=== PATIENT | male | born 1995 | race American Indian/Alaskan Native ===

== ENCOUNTER 2017-04-24 18:11 | Emergency (ER) | payer SELFPAY ==
[2017-04-24 18:15] VITALS: BMI 57.7
[2017-04-24 18:18] VITALS: TEMP 98.2
--- NOTE | 2017-04-24 19:25 | C.PDOC ---
History Of Present Illness 22 y/o male presents to ED with complaint of abdominal discomfort associated with nausea since last night. Patient states he had chicken salad sandwich from [employer] last night, and notes his stomach did not feel well afterward. Patient denies vomiting or diarrhea. He states that he had bowel movement this morning that was initially formed but then was loose. He notes symptoms have been persistent throughout the day today and notes no relief with Pepto Bismol. Otherwise, denies fever chills, urinary symptoms, back pain, or other complaints. Time Seen by Provider: 04/24/17 18:54 Chief Complaint (Nursing): Abdominal Pain History Per: Patient History/Exam Limitations: no limitations Onset/Duration Of Symptoms: Days Current Symptoms Are (Timing): Still Present Location Of Pain/Discomfort: Diffuse Quality Of Discomfort: "Pain" Associated Symptoms: denies: Fever, Chills, Vomiting, Diarrhea, Urinary Symptoms Last Bowel Movement: Today Recent travel outside of the [place]: No Past Medical History Reviewed: Historical Data, Nursing Documentation, Vital Signs Vital Signs: Last Vital Signs Temp 98.2 F 04/24/17 18:15 Pulse 88 04/24/17 18:15 Resp 18 04/24/17 18:15 BP 116/80 04/24/17 18:15 Pulse Ox 98 04/24/17 19:25 - Medical History PMH: Asthma, Depression, Fractures (Left Femur) - [facility] Procedures IRRIGATION OF EAR (05/21/13) OTHER GROUP THERAPY (06/21/13) Family History: States: Unknown Family Hx - Social History Hx Tobacco Use: No Hx Alcohol Use: No Hx Substance Use: No - Immunization History Hx Tetanus Toxoid Vaccination: No Hx Influenza Vaccination: No Hx Pneumococcal Vaccination: No Review Of Systems Except As Marked, All Systems Reviewed And Found Negative. Constitutional: Negative for: Fever, Chills Cardiovascular: Negative for: Chest Pain Respiratory: Negative for: Cough, Shortness of Breath Gastrointestinal: Positive for: Nausea, Abdominal Pain. Negative for: Vomiting , Diarrhea, Constipation Genitourinary: Negative for: Dysuria Skin: Negative for: Rash Physical Exam - Physical Exam Appears: Non-toxic, No Acute Distress Skin: Normal Color, Warm, Dry Head: Atraumatic, Normacephalic Oral Mucosa: Moist Chest: Symmetrical Cardiovascular: Rhythm Regular Respiratory: Normal Breath Sounds, No Rales, No Rhonchi, No Wheezing Gastrointestinal/Abdominal: Soft, No Tenderness, No Guarding, No Rebound Back: Normal Inspection, No CVA Tenderness Extremity: Normal ROM Neurological/Psych: Oriented x3, Normal Speech, Normal Cognition ED Course And Treatment - Laboratory Results Result Diagrams: 04/24/17 19:38 04/24/17 19:38 Lab Interpretation: No Acute Changes O2 Sat by Pulse Oximetry: 98 Pulse Ox Interpretation: Normal Progress Note: Treated with Bentyl, IVFs. Labs including urinalysis ordered and reviewed. Reevaluation Time: 20:16 Reassessment Condition: Improved (after Bentyl and IV fluids) Disposition Counseled Patient/Family Regarding: Studies Performed, Diagnosis, Need For Followup, Rx Given - Disposition Referrals: [facility] [Outside] Disposition: HOME/ ROUTINE Disposition Time: 20:19 Condition: IMPROVED Additional Instructions: Take clear fluids and advance to a bland diet as tolerated. Prescriptions: Dicyclomine [Bentyl] 20 mg PO QID PRN #6 tab PRN Reason: Pain, Moderate (4-7) Ondansetron ODT [Zofran ODT] 4 mg PO QID PRN #6 odt PRN Reason: Nausea/Vomiting Instructions: Acute Nausea and Vomiting (ED), Abdominal Pain (ED) - Clinical Impression Clinical Impression: Abdominal discomfort, Nausea - Scribe Statement The provider has reviewed the documentation as recorded by the Kavin Hernandez Provider Attestation: All medical record entries made by the Kavin were at my direction and personally dictated by me. I have reviewed the chart and agree that the record accurately reflects my personal performance of the history, physical exam, medical decision making, and the department course for this patient. I have also personally directed, reviewed, and agree with the discharge instructions and disposition.
[2017-04-24] MEDS ORDERED: Sodium Chloride 0.9% 1,000 ML ONE (19:28)
[2017-04-24] MEDS: Sodium Chloride 0.9% 1,000 ML IV ONE (19:38)
[2017-04-24 19:40] LABS: BASO % 0.4 % (0.0-2.0); EOS # 0.1 K/uL (0.0-0.7); EOS % 3.4 % (0.0-4.0); HEMATOCRIT 43.6 % (35.0-51.0); LYMPH # 0.5 K/uL (1.0-4.3); LYMPH % 16.6 % (20.0-40.0); MEAN CELL VOLUME 79.5 fL (80.0-94.0); MEAN CORPUSCULAR HEMOGLOBIN 25.5 pg (27.0-31.0); MEAN PLATELET VOLUME 10.1 fL (7.2-11.7); MONO # 0.4 K/uL (0.0-0.8); MONO % 12.3 % (0.0-10.0); NRBC % 0.1 % (0.0-2.0); RED CELL DISTRIBUTION WIDTH 13.9 % (11.5-14.5); WHITE BLOOD COUNT 3.3 K/uL (4.8-10.8)
[2017-04-24 19:49] LABS: CHLORIDE 99 mmol/L (98-107); POTASSIUM 4.3 mmol/L (3.6-5.2); SODIUM 138 mmol/L (132-148)
[2017-04-24 19:51] LABS: ALB/GLOB RATIO 1.5 (1.0-2.1); AST/SGOT 37 U/L (17-59); BILIRUBIN,TOTAL 0.9 mg/dL (0.2-1.3); CARBON DIOXIDE 27 mmol/L (22-30); GFR AFRICAN-AMERICAN > 60; TOTAL PROTEIN 7.6 g/dL (6.3-8.3)
[2017-04-24 19:52] LABS: ALKALINE PHOSPHATASE 57 U/L (38-126); ALT/SGPT 36 U/L (21-72); BLOOD UREA NITROGEN 11 mg/dL (9-20); CALCIUM 8.8 mg/dl (8.6-10.4); GLUCOSE,RANDOM 85 mg/dL (75-110)
[2017-04-24 20:38] VITALS: BP 131/77; PULSE 80; RESP 20; O2SAT 100
== END 2017-04-24 20:40 | disposition home or self-care (01) ==
LOC: C.ER 18:11
DX: R10.9 Unspecified abdominal pain (principal); R11.0 Nausea
CPT/HCPCS: 80053; 83690; 85025; 96360; 96372; 99284; J0500; J7040

== ENCOUNTER 2019-03-14 17:21 | Emergency (ER) | payer MEDICAID, OTHER ==
[2019-03-14 17:21] VITALS: BMI 53.0
[2019-03-14 17:41] VITALS: RESP 18; O2SAT 100
--- NOTE | 2019-03-14 18:48 | C.PDOC ---
History Of Present Illness 24 y/o male pt presents to the ER c/o lower back pain for over 1 week. 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 Pt takes aleve with no relief. Pt denies saddle anesthesia, weakness, numbness and tingling, bladder or bowel dysfunction. Time Seen by Provider: 03/14/19 18:15 Chief Complaint (Nursing): Back Pain History Per: Patient History/Exam Limitations: no limitations Onset/Duration Of Symptoms: Days (over a week) Current Symptoms Are (Timing): Still Present Past Medical History Reviewed: Historical Data, Nursing Documentation, Vital Signs Vital Signs: Last Vital Signs Temp 98.1 F 03/14/19 17:38 Pulse 92 H 03/14/19 17:38 Resp 18 03/14/19 17:38 BP 154/89 H 03/14/19 17:38 Pulse Ox 100 03/14/19 17:38 - Medical History PMH: Anxiety, Asthma, Bipolar Disorder, Depression, Fractures (Left Femur), Sleep Apnea - [facility] Procedures GROUP PSYCHOTHERAPY (07/04/18) INDIVIDUAL PSYCHOTHERAPY, BEHAVIORAL (07/04/18) IRRIGATION OF EAR (05/21/13) OTHER GROUP THERAPY (06/21/13) Family History: States: No Known Family Hx - Social History Hx Tobacco Use: No Hx Alcohol Use: No Hx Substance Use: No - Immunization History Hx Tetanus Toxoid Vaccination: No Hx Influenza Vaccination: No Hx Pneumococcal Vaccination: No Review Of Systems Constitutional: Negative for: Other ( saddle anesthesia) Musculoskeletal: Positive for: Back Pain (low) Neurological: Negative for: Weakness, Numbness, Other (numbness) Physical Exam - Physical Exam Appears: Non-toxic, No Acute Distress, Other (morbidly obese) Skin: Warm, Dry Head: Atraumatic, Normacephalic Neck: No Midline Cervical Tenderness, No Paracervical Tenderness Back: No CVA Tenderness, Paraspinal Tenderness (mild bilateral lumbar tenderness), Other (left and right sciatic notch tenderness) Extremity: Normal ROM, No Tenderness, No Swelling Neurological/Psych: Oriented x3, Normal Speech, Normal Cognition, Normal Motor, Normal Sensation ED Course And Treatment O2 Sat by Pulse Oximetry: 100 (RA) Pulse Ox Interpretation: Normal Medical Decision Making Medical Decision Making: Plans: -- tylenol -- lidocaine -- toradol -- flexeril 1932 pt feeling better; d/c home with nsaids and flexeril Disposition Counseled Patient/Family Regarding: Diagnosis, Need For Followup, Rx Given - Disposition Referrals: Leonor Sears MD [Staff Provider] - Disposition: HOME/ ROUTINE Disposition Time: 19:34 Condition: IMPROVED Additional Instructions: Avoid heavy lifting. Remove patches in 12 hours. Take Tylenol and aleve as prescribed. Take muscle relaxant 3 times a day for next 2 days then at bedtime only when working. Follow up with your doctor in 2 days. Prescriptions: Acetaminophen [Tylenol 325mg tab] 650 mg PO Q4 #50 tab Cyclobenzaprine [Cyclobenzaprine HCl] 10 mg PO Q8 #9 tab Naproxen 500 mg PO BID #20 tab Instructions: Low Back Pain (DC) Forms: General Discharge Instructions, [facility] ([place]), Work Excuse - Clinical Impression Clinical Impression: Low back pain - PA / APPEALS BOARD REFEREE / Resident Statement / has reviewed & agrees with the documentation as recorded. - Scribe Statement The provider has reviewed the documentation as recorded by the Kavin Carlson Do All medical record entries made by the Scribtyshawn were at my direction and personally dictated by me. I have reviewed the chart and agree that the record accurately reflects my personal performance of the history, physical exam, medical decision making, and the department course for this patient. I have also personally directed, reviewed, and agree with the discharge instructions and disposition.
[2019-03-14] MEDS ORDERED: Lidocaine 5% Patch TD STA (19:00)
[2019-03-14] MEDS ORDERED: Lidocaine 5% Patch TD ONE (19:06)
[2019-03-14 19:41] VITALS: BP 148/78; PULSE 86; TEMP 98.2
== END 2019-03-14 19:50 | disposition home or self-care (01) ==
LOC: C.ER 17:21
DX: M54.5 Low back pain (principal); F31.9 Bipolar disorder, unspecified
CPT/HCPCS: 96372; 99283; J1885